=== PATIENT | female | born 1980 | race Caucasian/White ===

== ENCOUNTER 2021-03-17 14:53 | Emergency (ER) | payer OTHER ==
[~2021-03-17] VITALS: Ht 167.6 cm; Wt 70.3 kg
[2021-03-17] MEDS ORDERED: ZOLOFT 50 MG TA50 MG PO (15:03)
[2021-03-17 15:32] VITALS: BP 121/70
== END 2021-03-17 15:32 | disposition home or self-care (01) ==
LOC: M.ERS 14:53
DX: J06.9 Acute upper respiratory infection, unspecified (principal); Z20.822 Contact with and (suspected) exposure to COVID-19; Z79.899 Other long term (current) drug therapy